=== PATIENT | male | born 1940 | race Native Hawaiian/Other Pacific Islander ===

== ENCOUNTER → 2020-09-27 | Emergency (ER) | payer OTHER | LOC: ED 10:52 | PROVIDERS: Family Medicine | DX: E87.1 Hypo-osmolality and hyponatremia (principal) | CPT/HCPCS: 80053; 96360; 99284 ==

== ENCOUNTER 2020-10-18 16:18 | Emergency (ER) | payer OTHER ==
[~2020-10-18] VITALS: Ht 172.7 cm; Wt 104.3 kg
[2020-10-18 16:29] VITALS: TEMP 98.4
[2020-10-18 17:11] LABS: PLATELET COUNT 165 K/uL (142-355)
[2020-10-18 17:31] LABS: POTASSIUM 5.4 mmol/L (3.6-5.2)
[2020-10-18 19:04] LABS: POTASSIUM 4.9 mmol/L (3.6-5.2)
[2020-10-18 19:44] VITALS: BP 148/75
== END 2020-10-18 19:44 | disposition home or self-care (01) ==
LOC: ED 16:18
PROVIDERS: Family Medicine
DX: E87.1 Hypo-osmolality and hyponatremia (principal)
CPT/HCPCS: 36415; 80048; 80053; 85027; 96360; 99284